=== PATIENT | male | born 1995 | race Caucasian/White ===

== ENCOUNTER 2017-12-29 19:42 | Emergency (ER) | payer SELFPAY ==
[2017-12-29] MEDS ORDERED: KETOROLAC TROMETHAMINE 60 MG/2 ML SDV IM ONE (20:07)
--- NOTE | 2017-12-29 20:09 | ER Document Report ---
ED Medical Screen (RME) - General Chief Complaint: Testicular Pain Stated Complaint: LOWER ABDOMINAL PAIN Time Seen by Provider: 12/29/17 20:03 Notes: Patient is a 22-year-old male that presents to the emergency department for chief complaint of right testicular pain and swelling. Patient states that his right testicle started becoming painful for 5 days ago, and is worse with walking, describes as a pain behind the testicle, rates the pain currently as a 6 out of 10, denies any fevers, chills, urinary symptoms nausea or vomiting.. ROS: Unless otherwise stated in this report the patient's positive and negative responses for review of systems for constitutional, eyes, ENT, cardiovascular, respiratory, gastrointestinal, neurological, genitourinary, musculoskeletal, and integumentary systems and related systems to the presenting problem are either as stated in the HPI or were not pertinent or were negative for the symptoms and/or complaints related to the presenting medical problem. PHYSICAL EXAMINATION: Vital signs reviewed. GENERAL: Well-appearing, well-nourished and in no acute distress. HEAD: Atraumatic, normocephalic. EYES: Pupils equal round extraocular movements intact, conjunctiva are normal. ENT: Nares patent NECK: Normal range of motion CV: Heart regular rate and rhythm LUNGS: No respiratory distress Musculoskeletal: Normal range of motion Male genital exam: The right testicle is mildly edematous, and tender to palpate , the epididymis feels full, and more firm than the left, both have vertical lie , positive cremaster reflex bilaterally NEUROLOGICAL: Normal speech PSYCH: Normal mood, normal affect. MDM: Patient seen and examined for rapid initial assessment. Vital signs reviewed. A comprehensive ED assessment and evaluation of the patient, analysis of test results and completion of the medical decision making process will be conducted by additional ED providers. *Note is created using voice recognition software and may contain spelling, syntax or grammatical errors. TRAVEL OUTSIDE OF THE [place] IN LAST 30 DAYS: No Physical Exam - Vital signs Vitals: Temp Pulse Resp BP Pulse Ox 98.8 F 78 18 169/80 H 99 12/29/17 19:42 12/29/17 19:42 12/29/17 19:42 12/29/17 19:42 12/29/17 19:42 Course - Vital Signs Vital signs: Temp Pulse Resp BP Pulse Ox 98.8 F 78 18 169/80 H 99 12/29/17 19:42 12/29/17 19:42 12/29/17 19:42 12/29/17 19:42 12/29/17 19:42
[2017-12-29 20:27] LABS: APPEARANCE,URINE CLEAR; BILIRUBIN,URINE NEGATIVE (NEGATIVE); COLOR,URINE YELLOW; GLUCOSE, URINE NEGATIVE (NEGATIVE); KETONES,URINE NEGATIVE (NEGATIVE); LEUKOCYTE ESTERASE,URINE SMALL (NEGATIVE); NITRITE,URINE NEGATIVE (NEGATIVE); PROTEIN,URINE NEGATIVE (NEGATIVE); URINE SPECIFIC GRAVITY 1.011
--- NOTE | 2017-12-29 21:08 | RADIOLOGY REPORT (SQ) ---
EXAM DESCRIPTION: US SCROTUM COMPLETED DATE/TME: 12/29/2017 20:07 CLINICAL HISTORY: 22 years, Male, right testicular pain, swelling Findings: Right testis measures 4.5 x 2.4 x 3.4 cm. Left testis measures 4.4 x 2.1 x 3.6 cm. Vascular flow is preserved within both testes on color and spectral Doppler imaging. Right epididymal tail appears enlarged and increased vascularity, suspicious for epididymitis. No significant hydrocele. IMPRESSION: No evidence for testicular torsion. Findings suspicious for right-sided epididymitis.
[2017-12-29] MEDS ORDERED: DOXYCYCLINE HYCLATE 100 MG TABLET PO ONE (21:59)
[2017-12-29] MEDS ORDERED: CEFTRIAXONE INJ 250 MG VIAL IM ONE (21:59)
[2017-12-29] MEDS ORDERED: HYDROCODONE/ACETAMINOPHEN 5-325 MG (6 TAB/ER DISP) PO PRN (22:01)
--- NOTE | 2017-12-29 22:01 | ER Document Report ---
ED General - General Chief Complaint: Testicular Pain Stated Complaint: LOWER ABDOMINAL PAIN Time Seen by Provider: 12/29/17 20:03 Mode of Arrival: Ambulatory Information source: Patient TRAVEL OUTSIDE OF THE [place] IN LAST 30 DAYS: No - HPI Patient complains to provider of: Testicle swelling Onset: Other - This is a 22-year-old male presents for evaluation of swelling in his right testicle which is developed over the last 3 days. He notes that it had worsened to a point where it felt like he was getting flicked in the testicle every time he took a step. When sitting down he had a throbbing quality to it prompted him to come the emergency room today for further evaluation. Denies fevers or chills denies any dysuria does note that he is sexually active and previously was exposed to chlamydia. Denies any other previous episodes like this in the past, denies any episodes of emesis, does endorse some abdominal pain. Past Medical History - General Information source: Patient - Social History Smoking Status: Never Smoker Chew tobacco use (# tins/day): No Frequency of alcohol use: None Drug Abuse: None Family History: None Patient has suicidal ideation: No Patient has homicidal ideation: No Renal/ Medical History: Denies: Hx Peritoneal Dialysis Review of Systems - Review of Systems -: Yes All other systems reviewed and negative Physical Exam - Vital signs Vitals: Temp Pulse Resp BP Pulse Ox 98.8 F 78 18 169/80 H 99 12/29/17 19:42 12/29/17 19:42 12/29/17 19:42 12/29/17 19:42 12/29/17 19:42 - General General appearance: Appears well In distress: None - HEENT Head: Normocephalic Eyes: Normal Conjunctiva: Normal Cornea: Normal Extraocular movements intact: Yes Eyelashes: Normal Pupils: PERRL Ears: Normal External canal: Normal Mouth/Lips: Normal - Respiratory Respiratory status: No respiratory distress Chest status: Nontender Breath sounds: Normal Chest palpation: Normal - Cardiovascular Rhythm: Regular Heart sounds: Normal auscultation - Abdominal Inspection: Normal Distension: No distension Tenderness: Nontender - Genitourinary Tenderness: Testicle tender, Epididymis tender - Back Back: Normal - Extremities General upper extremity: Normal inspection, Nontender, Normal strength, Normal temperature General lower extremity: Normal inspection, Nontender, Normal strength, Normal temperature - Neurological Neuro grossly intact: Yes Cognition: Normal Orientation: AAOx4 [place] Coma Scale Eye Opening: Spontaneous [place] Coma Scale Verbal: Oriented [place] Coma Scale Motor: Obeys Commands [place] Coma Scale Total: 15 Speech: Normal Motor strength normal: LUE, RUE, LLE, RLE - Psychological Associated symptoms: Normal affect Course - Re-evaluation Re-evalutation: 12/30/17 02:01 This 22-year-old man presented for testicle pain and swelling. He had an ultrasound ordered through triage which demonstrated some epididymis swelling consistent likely with epididymitis and orchitis. This patient on review is noted to have been exposed to chlamydia with the last couple of weeks. We will plan to treat this patient with Rocephin IM and 10-day course of doxycycline p.o. He will be encouraged to follow-up in case of any worsening, do not believe at this time that this patient has a more serious underlying cause of his testicular pain and swelling such as but not limited to torsion or hernia. - Vital Signs Vital signs: Temp Pulse Resp BP Pulse Ox 98.8 F 79 16 131/76 H 100 12/29/17 19:42 12/29/17 22:48 12/29/17 22:48 12/29/17 22:48 12/29/17 22:48 - Laboratory Laboratory results interpreted by me: 12/29/17 20:08 Urine Urobilinogen 4.0 H Ur Leukocyte Esterase SMALL H Discharge - Discharge Clinical Impression: Epididymitis Condition: Good Disposition: HOME, SELF-CARE Instructions: Doxycycline ([facility]), Epididymitis ([facility]) Prescriptions: Doxycycline Hyclate 100 mg PO BID #20 capsule
[2017-12-29] MEDS ORDERED: LIDOCAINE 1% INJ-PF (10 MG/ML) 30 ML SDV ONE (22:22)
[2017-12-29 22:49] VITALS: BP 131/76
== END 2017-12-29 22:49 | disposition home or self-care (01) ==
LOC: ER 19:42
DX: N45.1 Epididymitis (principal); R10.30 Lower abdominal pain, unspecified; Z20.2 Contact with and (suspected) exposure to infections with a predominantly sexual mode of transmission
CPT/HCPCS: 99284; 96372; 81001; 76870; 93976; J1885; J3490; J0696

== ENCOUNTER 2018-09-13 01:43 | Emergency (ER) | payer OTHER ==
[2018-09-13] MEDS ORDERED: LORAZEPAM INJ 2 MG/1 ML VIAL IV ONE (02:17)
--- NOTE | 2018-09-13 02:19 | ER Document Report ---
ED General - General Chief Complaint: Chest Pain Stated Complaint: CHEST PAIN Time Seen by Provider: 09/13/18 02:11 Notes: Patient is a 23-year-old male that comes to the emergency department for chief complaint of a pain in his chest that felt like a tightness, he states that he felt like he could not breathe and he got nauseated, he states he felt lightheaded as well. He also got very shaky. This happened while he was at home in bed tonight. He states he has had this many times in the past but never this bad. He denies passing out, vomiting, fever/chills, injury. He denies smoking, he drinks alcohol occasionally, he denies any recreational drug history ever. He states he drinks limited caffeine. He does not take any daily medi cations, he denies any surgeries, he denies any diagnosed medical problems. Girlfriend at bedside. TRAVEL OUTSIDE OF THE [place] IN LAST 30 DAYS: No Past Medical History - General Information source: Patient - Social History Smoking Status: Never Smoker Frequency of alcohol use: Occasional Drug Abuse: None Lives with: Spouse/Significant other Family History: None Renal/ Medical History: Denies: Hx Peritoneal Dialysis Surgical Hx: Negative - Immunizations Immunizations up to date: Yes Hx Diphtheria, Pertussis, Tetanus Vaccination: Yes Review of Systems - Review of Systems Constitutional: No symptoms reported EENT: No symptoms reported Cardiovascular: See HPI Respiratory: See HPI Gastrointestinal: See HPI Genitourinary: No symptoms reported Male Genitourinary: No symptoms reported Musculoskeletal: No symptoms reported Skin: No symptoms reported Hematologic/Lymphatic: No symptoms reported Neurological/Psychological: See HPI Physical Exam - Vital signs Vitals: Temp Pulse Resp BP Pulse Ox 97.8 F 97 18 179/103 H 99 09/13/18 01:46 09/13/18 01:46 09/13/18 01:46 09/13/18 01:46 09/13/18 01:46 - Notes Notes: GENERAL: Patient is flushed, anxious, shaking visibly HEAD: Normocephalic, atraumatic. EYES: Pupils dilated, EOMs intact ENT: Oral mucosa moist, tongue midline. Oropharynx unremarkable. Airway patent. Nares patent, no nasal septal hematoma, TM's intact. NECK: Full range of motion. Supple. Trachea midline. LUNGS: Clear to auscultation bilaterally, no wheezes, rales, or rhonchi. No respiratory distress. HEART: Borderline tachycardic, normal rhythm, no murmur ABDOMEN: Soft, non-tender. Non-distended. Bowel sounds present in all 4 quadrants. GENITOURINARY: Deferred EXTREMITIES: Moves all 4 extremities spontaneously. No edema, normal radial and dorsalis pedis pulses bilaterally. No cyanosis. BACK: no cervical, thoracic, lumbar midline tenderness. No saddle anesthesia, normal distal neurovascular exam. Moves all extremities in full range of motion. NEUROLOGICAL: Alert and oriented x3. Normal speech. Cranial nerves II through XII grossly intact. PSYCH: Anxious, speaking rapidly, shaky SKIN: Slightly flushed Course - Re-evaluation Re-evalutation: On initial evaluation patient is shaky, his pupils are dilated, he is mildly tachycardic. He speaks anxiously. He still complains of discomfort in his chest and occasional nausea. Work-up pending. He will be given a milligram of Ativan after discussion to help his symptoms. 09/13/18 02:40 I was called to the room, patient had apparently become bradycardic and diaphoretic. He is very pale when I entered the room. He describes symptoms like he almost passed out. He is lying flat, awake, his heart rate is in the 60s, his blood pressure is normal. Giving IV fluids. Patient tells me that he almost passed out when they placed the IV, the needle caused his vasovagal symptoms. Patient reevaluated. Now that he almost had a syncopal episode from the IV pl acement his tachycardia has resolved, his chest pain has resolved, his shakiness has resolved, his pupils are not dilated. This appears to have resolved his panic attack. His EKG shows no acute findings, chest x-ray is unremarkable, laboratory work-up is unremarkable. Troponin is negative as well. Based on his presentation, work-up, and evaluation I have very strongly suspect a panic attack. Patient states he has had similar episodes in the past but never this bad. I did discuss his work-up in detail, discussed options. Patient is asking for something to take for anxiety/panic attacks as needed, he is provided with Vistaril. He states he will follow-up with primary care for additional evaluation. Discussed return precautions. Patient states understanding and agreement. Significant other states understanding and agreement. Stable at time of discharge. - Vital Signs Vital signs: Temp Pulse Resp BP Pulse Ox 98.4 F 97 27 H 134/48 H 97 09/13/18 05:01 09/13/18 01:46 09/13/18 05:01 09/13/18 05:01 09/13/18 05:01 - Laboratory Result Diagrams: 09/13/18 02:30 09/13/18 02:30 Laboratory results interpreted by me: 09/13/18 02:30 Potassium 3.5 L Discharge - Discharge Clinical Impression: Shortness of breath, Panic attack Chest pain Qualifiers: Chest pain type: unspecified Qualified Code(s): R07.9 - Chest pain, unspecified Disposition: HOME, SELF-CARE Additional Instructions: Your work-up tonight does not show any concerning findings other than mild dehydration which was addressed. Your evaluation is most consistent with a panic attack episode. See details on this below. Take the provided medication if needed if an episode like this happens again, however return if this does not help or any other concerning or worsening sympto ms develop. Follow-up with primary care for additional management as well. Panic Attack The cause of panic attacks is unknown. Symptoms can include chest pain, shortness of breath, palpitations, sweats, and a sense of smothering or impending doom. In time, the panic attacks can lead to generalized anxiety and phobias. Because the symptoms can mimic heart attack, pulmonary embolism, and other serious diseases, the physician has evaluated you for these conditions. There is no evidence of a serious problem. An acute panic attack usually goes away by itself without treatment. A severe attack can be treated with medicine to calm you. Long-term, antidepressant medicines may help prevent attacks. Panic attacks are less likely if you are getting regular exercise, proper diet, and plenty of sleep. It's normal for panic attacks to cause many frightening symptoms. However, you should call or return if your symptoms change significantly or if you are worsening. Prescriptions: Hydroxyzine Pamoate [Vistaril 25 mg Capsule] 1 - 2 cap PO Q6 PRN #30 capsule PRN Reason:
[2018-09-13] MEDS ORDERED: NORMAL SALINE 1000 ML 1,000 ML IV ONE (02:40)
[2018-09-13 02:59] LABS: ABSOLUTE BASOPHILS # (AUTO) 0.1 10^3/uL (0.0-0.2); ABSOLUTE EOSINOPHILS # (AUTO) 0.4 10^3/uL (0.0-0.6); ABSOLUTE LYMPHOCYTES (AUTO) 3.4 10^3/uL (0.5-4.7); ABSOLUTE MONOCYTES (AUTO) 0.8 10^3/uL (0.1-1.4); ABSOLUTE NEUT (AUTO) 4.1 10^3/uL (1.7-8.2); BASOPHILS % (AUTO) 0.9 % (0-2); EOSINOPHILS % (AUTO) 4.5 % (0-6); HEMATOCRIT 42.4 % (37.9-51.0); HEMOGLOBIN 14.8 g/dL (13.5-17.0); LYMPHOCYTES % (AUTO) 38.9 % (13-45); MEAN CORPUSCULAR HGB CONC 34.9 g/dL (32.0-36.0); MEAN CORPUSCULAR VOLUME 83 fl (80-97); MONOCYTES % (AUTO) 8.6 % (3-13); PLATELET COUNT 200 10^3/uL (150-450); RED CELL DISTRIBUTION WIDTH 12.9 % (11.5-14.0); SEGMENTED NEUTROPHILS % (AUTO) 47.1 % (42-78); TOTAL CELLS COUNTED % (AUTO) 100 %; WHITE BLOOD COUNT 8.8 10^3/uL (4.0-10.5)
[2018-09-13 03:18] LABS: ANION GAP 11 (5-19); BLOOD UREA NITROGEN 12 mg/dL (7-20); CALCIUM 9.5 mg/dL (8.4-10.2); CARBON DIOXIDE 25 mmol/L (22-30); CHLORIDE 106 mmol/L (98-107); GLUCOSE 106 mg/dL (75-110); POTASSIUM 3.5 mmol/L (3.6-5.0); SODIUM 142.3 mmol/L (137-145)
[2018-09-13 03:37] LABS: APPEARANCE,URINE CLEAR; BILIRUBIN,URINE NEGATIVE (NEGATIVE); COLOR,URINE YELLOW; GLUCOSE, URINE NEGATIVE (NEGATIVE); KETONES,URINE NEGATIVE (NEGATIVE); NITRITE,URINE NEGATIVE (NEGATIVE); PROTEIN,URINE NEGATIVE (NEGATIVE); URINE SPECIFIC GRAVITY 1.024; UROBILINOGEN,URINE NEGATIVE mg/dL (<2.0)
[2018-09-13 03:38] LABS: LEUKOCYTE ESTERASE,URINE NEGATIVE (NEGATIVE)
[2018-09-13 03:51] LABS: URINE AMPHETAMINES SCREEN NEGATIVE; URINE BARBITURATES SCREEN NEGATIVE; URINE BENZODIAZEPINES SCREEN NEGATIVE; URINE COCAINE SCREEN NEGATIVE; URINE MARIJUANA (THC) SCREEN NEGATIVE; URINE METHADONE SCREEN NEGATIVE; URINE PHENCYCLIDINE SCREEN NEGATIVE
--- NOTE | 2018-09-13 04:13 | RADIOLOGY REPORT (SQ) ---
EXAM DESCRIPTION: XR CHEST 1 VIEW COMPLETED DATE/TME: 09/13/2018 02:17 CLINICAL HISTORY: 23 years, Male, chest pain COMPARISON: None. NUMBER OF VIEWS: One TECHNIQUE: AP view of the chest LIMITATIONS: None. FINDINGS: The lungs are clear. The heart is normal in size. There is no pneumothorax or pleural effusion. The bones are unremarkable. IMPRESSION: No acute cardiopulmonary abnormality copyright 2010 [employer]- All Rights Reserved
[2018-09-13] MEDS ORDERED: HYDROXYZINE PAMOATE 25 MG CAPSULE (4 CAP/ER DISP) PO PRN (04:40)
[2018-09-13 05:11] VITALS: BP 134/48
--- NOTE | 2018-09-13 06:57 | EKG REPORT ---
SEVERITY:- NORMAL ECG - SINUS RHYTHM : Confirmed by: Hayley Koch 13-Sep-2018 06:56:44
--- NOTE | 2018-09-13 19:29 | EKG REPORT ---
SEVERITY:- ABNORMAL ECG - SINUS TACHYCARDIA BASELINE ARTIFACT.REPEAT EKG : Confirmed by: Liana Ross MD 13-Sep-2018 19:28:55
== END 2018-09-13 05:11 | disposition home or self-care (01) ==
LOC: ER 01:43
DX: F41.0 Panic disorder [episodic paroxysmal anxiety] (principal); R11.0 Nausea; R42 Dizziness and giddiness; R07.9 Chest pain, unspecified; R23.2 Flushing; H57.04 Mydriasis; R06.02 Shortness of breath; R55 Syncope and collapse
CPT/HCPCS: 93005; 99285; 36415; 85025; 80048; 81001; 84484; 80307; 71045; 93010; J7030